=== PATIENT | female | born 1945 | race Caucasian/White ===

== ENCOUNTER 2018-05-20 08:44 | Day surgery (SDC) | payer MEDICARE, OTHER ==
[~2018-05-20] VITALS: Ht 167.6 cm; Wt 79.1 kg
--- NOTE | ~2018-05-20 | OP ---
PATIENT NAME: ELMA PRATHER MEDICAL RECORD: [id number] :49 LOCATION:D.OPS ADMISSION DATE: SURGEON: PADMAJA ENCISO MD DATE OF OPERATION: 05/20/2018 PROCEDURE: EGD with biopsy, EGD with balloon dilatation. SCOPE: An Olympus video gastroscope and a CRE Microvasive balloon from 45 to 60 [place]. MEDICATIONS: Provided per TIVA anesthesia. The indication for TIVA is COPD and asthma. The patient received 230 mg of propofol IV push, O2 of 4 liters. INDICATION FOR THE PROCEDURE: 1. Surveillance for Truong esophagus. 2. Dysphagia in the distal esophageal area. FINDINGS: Informed consent was given. The patient was made comfortable with the above medications. After reaching an adequate level of sedation by slow IV push, the patient was placed on her left side. The endoscope was then advanced under direct visualization through the posterior pharyngeal area and advanced to the distal esophagus. At the distal esophageal area, a stenotic Schatzki's ring was appreciated and after the inspection part of the EGD was completed, a CRE microvasive balloon was placed in this area, slowly inflated to 60-[place], held in place for 1 minute without complication. The balloon was then withdrawn. We did see evidence of Truong's esophagus at the gastroesophageal junction and biopsies were obtained. On entering the stomach, the patient had a few slightly hemorrhagic areas of bleeding due to inflammation and erosions throughout the gastric mucosa. These were most pronounced in the body of the stomach and again in the antrum. A Helicobacter histopathology biopsy was taken at the antral area. We then advanced the scope into the duodenal bulb and to the second portion of the duodenum where only mild inflammation was noted and a biopsy was obtained. The scope was then withdrawn. IMPRESSION: 1. Distal esophageal stenotic Schatzki's ring dilated to 60-[place] without complication. 2. Truong's esophagus, biopsied for a surveillance reason. 3. Slightly hemorrhagic erosive gastritis, biopsy taken at the antral area. 4. Mild duodenitis, biopsied. 5. The patient had a few very small AVMs, which were nonhemorrhagic. These were noted in the gastric and duodenal areas. PLAN: 1. Continue famotidine at a dose of 40 mg p.o. every day total, this is in a split dose of 20 mg p.o. b.i.d. A prescription has been provided for 1 year supply. 2. The patient to follow reflux precautions stringently, both dietary and positional. No chocolate, tomato, citrus, caffeine, fatty foods, peppermint. The patient should not eat late at night and should sit up for a few hours after meals. If she does notice refluxing at night, she should sleep with the head of the bed elevated at least 6 cm. 3. Caution with anti-inflammatory drugs. 4. Return to clinic on a p.r.n. basis and the patient should notify us if she has any additional problems with refluxing. OPERATIVE REPORT [id number] ELMA PRATHER 5. EGD in 2 years as a surveillance procedure. TRANSINT:[id number] Voice Confirmation ID: [id number] DOCUMENT ID: [id number] PADMAJA ENCISO MD at 1215 CC: CHEL KIM [id number] DICTATION DATE: 05/20/18 1216 BALLISTICIAN: 05/20/18 1701 [facility] 05/20/18 [id number] [place] [id number]
[~2018-05-20 08:44] MED LIST: AMBIEN10 MG PO; CETIRIZINE HCL5 MG PO; CLOBETASOL PROP25 ML TOPICAL; ELAVIL10 MG; FLUTICASONE PRO16 GM NASAL; PEPCID40 MG PO; PRAVASTATIN SOD10 MG PO; PROAIR HFA8.5 GM INH; PROBENECID500 MG PO; PROBIOTIC250 MG PO; PROVENTIL/2.5 MG/3 M INH; PULMICORT 11 MG/2 ML NEB; SINGULAIR10 MG PO; SYMBICORT 16010.2 GM INH; VENTOLIN HFA18 GM INH
[2018-05-20 09:00] LABS: BASOPHILS 0.3 % (0-2); EOSINOPHILS 4.3 % (0-7); HEMATOCRIT 40.2 % (36.0-48.0); HEMOGLOBIN 13.4 g/dL (12-16); IMMATURE GRANULOCYTES 0.3 % (0-5); LYMPHOCYTES 22.7 % (15-50); MCH 29.1 pg (26.0-34.0); MCHC 33.3 g/dL (31.0-37.0); MCV 87.4 fL (80.0-100.0); MEAN PLATELET VOLUME 10.4 fL (7.4-10.4); MONOCYTES 9.3 % (2-11); NEUTROPHILS 63.1 % (40-80); PLATELET COUNT 314 10x3/uL (130-400); RDW 14.4 % (11.5-14.5); WBC 9.6 10x3/uL (4.8-10.8)
[2018-05-20] MEDS ORDERED: ANORO ELLIPTA1 EACH INH (10:39)
[2018-05-20] MEDS ORDERED: PAMELOR10 MG PO (10:40)
[2018-05-20 10:41] VITALS: BP 139/77; Ht 167.6 cm; Wt 79.1 kg
== END 2018-05-20 13:03 | disposition home or self-care (01) ==
LOC: D.OPS 08:44
PROVIDERS: Anesthesiology
DX: R13.10 Dysphagia, unspecified (principal); K22.70 Barrett's esophagus without dysplasia; K29.60 Other gastritis without bleeding; K55.20 Angiodysplasia of colon without hemorrhage

== ENCOUNTER → 2018-09-22 22:31 | Outpatient (CLI) | payer MEDICARE, OTHER ==
[2018-05-20 10:41] VITALS: BMI 28.1
[~2018-09-22 22:31] MED LIST changes: +ANORO ELLIPTA1 EACH INH; +PAMELOR10 MG PO
== END | disposition home or self-care (01) ==
LOC: D.MAMMO 15:30
DX: Z12.31 Encounter for screening mammogram for malignant neoplasm of breast (principal)